=== PATIENT | female | born 1955 | race Two or more races ===

== ENCOUNTER 2017-06-25 20:37 | Inpatient (IN) | payer MEDICARE, MEDICAID ==
[~2017-06-25] VITALS: Ht 149.9 cm; Wt 59.9 kg
[~2017-06-25 20:37] MED LIST: AMLODIPINE BESYL5 MG PO; ANTARA130 MG PO; ASPIRIN EC81 MG PO; AZITHROMYCIN250 MG PO; COUMADIN2 MG PO; GLUCOPHAGE500 MG PO; HUMULIN N100 UNIT/2 SQ; HUMULIN R100 UNIT/1 SUBQ; LIPITOR10 MG PO; MYLANTA30 M1 PO; OMEPRAZOLE20 MG PO; PEPCID20 MG ORAL; PHENERGAN/CODE120 ML PO; PRAVASTATIN SOD80 MG PO
[2017-06-25] MEDS ORDERED: Nitroglycerin 2% oint pkt TOPIC ONE (20:45)
[2017-06-25] MEDS ORDERED: Morphine Sulfate 4mg/ml Inj IVP ONE (20:45)
[2017-06-25 21:16] LABS: HEMATOCRIT 30.7 % (37.0-47.0); HEMOGLOBIN 9.2 G/DL (12.0-16.0); LYMPHOCYTES % (AUTO) 13.4 % (20.0-45.0); MEAN CORPUSCULAR VOLUME 97 FL (80-99); MONOCYTES % (AUTO) 7.8 % (1.0-10.0); NEUTROPHILS % (AUTO) 76.8 % (45.0-75.0); PLATELET COUNT 417 K/UL (150-450); RED BLOOD COUNT 3.16 M/UL (4.20-5.40); RED CELL DISTRIBUTION WIDTH 18.5 % (11.6-14.8); WHITE BLOOD COUNT 10.9 K/UL (4.8-10.8)
[2017-06-25 21:30] VITALS: BP 137/56
[2017-06-25 21:37] LABS: ALANINE AMINOTRANSFERASE 13 U/L (12-78); ALBUMIN/GLOBULIN RATIO 0.6 (1.0-2.7); ALKALINE PHOSPHATASE 109 U/L (46-116); ANION GAP 6 mmol/L (5-15); ASPARTATE AMINO TRANSFERASE 35 U/L (15-37); BILIRUBIN,TOTAL 0.3 MG/DL (0.2-1.0); BLOOD UREA NITROGEN 18 mg/dL (7-18); CALCIUM 9.6 MG/DL (8.5-10.1); CARBON DIOXIDE 28 MMOL/L (21-32); CHLORIDE 96 MMOL/L (98-107); CREATININE 2.6 MG/DL (0.55-1.30); POTASSIUM 4.5 MMOL/L (3.5-5.1); SODIUM 130 MMOL/L (136-145)
[2017-06-25 21:43] LABS: CREATINE KINASE 141 U/L (26-308)
[2017-06-25 21:44] LABS: APPEARANCE,URINE CLEAR; BILIRUBIN, URINE NEGATIVE (NEGATIVE); GLUCOSE, URINE (UA) NEGATIVE (NEGATIVE); KETONES,URINE 1+ (NEGATIVE); LEUKOCYTE ESTERASE ,URINE 2+ (NEGATIVE); NITRITE,URINE NEGATIVE (NEGATIVE); PH,URINE 5 (4.5-8.0); PROTEIN,URINE 4+ (NEGATIVE); UROBILINOGEN,URINE NORMAL MG/DL (0.0-1.0)
[2017-06-25 21:48] LABS: COLOR,URINE YELLOW
--- NOTE | 2017-06-25 22:52 | Emergency Room Report ---
History of Present Illness General Chief Complaint: Chest Pain Source: Patient, Medical Record, EMS (Deangelo Wan M.D.) Present Illness HPI Patient is discharged after being evaluated for acute coronary syndrome at [facility]. Tonight for about an hour and half she's been complaining about left-sided chest pain. According to paramedics they stated it is pleuritic. They did an EKG in the field to did not reveal a STEMI. They gave aspirin but no nitrates in the field. The patient is a dialysis patient. According to her doctors her troponins were minimally elevated at [facility] and was 0.3 at discharge. The patient denies shortness of breath, nausea, vomiting, diarrhea. She underwent dialysis earlier today. She gets dialysis Tuesdays and Saturdays. According to the previous history she is on Coumadin. (This recording might be in error) She is being treated for MRSA and the urine. 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, CAD , PACEMAKER Hx Hypertension: Yes Hx Diabetes: Yes - dm2 Hx Cancer: No Hx Gastrointestinal Problems: Yes - Gatritis Hx Dialysis: Yes - -----tue Hx Neurological Problems: No (Deangelo Wan M.D.) Review of Systems All Other Systems: negative except mentioned in HPI (Deangelo Wan M.D.) Physical Exam Vital Signs Date Time Temp Pulse Resp B/P (MAP) Pulse Ox O2 Delivery O2 Flow Rate FiO2 06/25/17 20:29 98.4 72 18 127/59 95 Room Air Sp02 EP Interpretation: reviewed, normal General Appearance: well appearing, no apparent distress, other - GCS 14, keeps eyes closed Head: normocephalic Eyes: bilateral eye normal inspection, bilateral eye PERRL ENT: moist mucus membranes Neck: supple Respiratory: lungs clear, normal breath sounds Cardiovascular #1: regular rate, rhythm Cardiovascular #2: 2+ radial (R) Gastrointestinal: normal inspection, normal bowel sounds, non tender, no mass, non-distended Musculoskeletal: back normal, gait/station normal, normal range of motion Neurologic: alert, DTRs symmetric, sensory intact, motor weakness - generalized Psychiatric: depressed affect Skin: normal inspection, warm/dry (Deangelo Wan M.D.) Procedures Critical Care Time Critical Care Time Total Critical Care Time: 30 min bedside evaluation and treatment excludes procedures (EKG). Reason for critical care: NSTEMI Possible complications: hypotension, hypertension, TN, shock, arrhythmias, metabolic acidosis, end organ damage, respiratory failure. Interventions: aspirin, nitrates, heparin Course: Patient with chest pain and no STEMI on EKG. Treated with aspirin in field and nitrates and morphine here. Lab reported + troponin. Comparison of recent, elevated. Repeat EKG still no STEMI. Contact PMD and manager delivery with discussions with consideration transfer to higher level of care. [employer] Truck Driver recommends OK to stay. Patient hemodynamically stable. Refuses more pain medicine and states pain is 2/10. Though she was supposed to be on coumadin, INR was 1.0 and so heparin was begun. Consultations: nursing staff, EMS, manager delivery, PMD Performed by: Dr. Wan Tolerated well condition = serious (Deangelo Wan M.D.) Central Line Central Line : Consent: Written Central Line Lumen: triple Maximal Sterile Barrier Tech: yes cap, yes mask, yes sterile gown, yes sterile gloves, yes large sterile sheet, yes hand hygiene, yes chlorhexidine prep Central Line Postion: internal jugular (L) Anesthesia: Lidocaine cc's of anesthesia: 5 Complications: none Central Line Post Position: sutured, good blood return, position confirmed w / CXR Attempts: One Patient Tolerated: Well Complications: None (José Miguel Handy M.D.) Medical Decision Making Diagnostic Impression: Primary Impression: NSTEMI (non-ST elevated myocardial infarction) Additional Impressions: CHF (congestive heart failure) Qualified Codes: I50.43 - Acute on chronic combined systolic (congestive) and diastolic (congestive) heart failure ESRD (end stage renal disease) on dialysis Urinary tract infection Qualified Codes: N30.00 - Acute cystitis without hematuria ER Course Patient presents with chest pain. Chest risk factors of dialysis and date disease with hypertension. Differential includes acute myocardial infarction, acute coronary syndrome, none Steny, pneumonia, gram was (less likely as the patient is mostly on Coumadin), costochondritis amongst others. Evaluation will be with EKG, chest x-ray and laboratory. She was treated with nitroglycerin paste and morphine. She received aspirin in the field. EKG shows no acute injury. There is a left axis deviation with right bundle branch block. The laboratory called us with a positive troponin. The patient was given aspirin in the field. She he had nitroglycerin on her chest and also to treated with morphine. She was improved clinically. The chest x-ray showed asymmetric increased markings with this being greater on the right-hand side or white count was normal. She's not coughing. This was presumed to be related to congestive heart failure this was corroborated with an elevated BNP. Her private physician was contacted. She gave a history of the elevated troponin was minimally elevated prior to discharge. She requested I speak with Dr. Sweeney. Dr. Shaw requested a copy of EKG. Patient discussed in detail. She is comfortable admitting the patient to [facility]. She will discuss with Dr. Walls. The patient is supposed and Coumadin according to the old records however according to most recent documentation she's on antibiotics. Her INR is 1.0 and therefore a heparin bolus is given and heparin drip is begun. Patient states the pain is much improved at this time. I offered to give her more morphine this time and she refused. She has a known UTI and is on antibiotics. No antibiotics given in ED. Admit [facility] Dr. Schultz. Laboratory Tests Test 06/25/17 20:50 06/25/17 21:23 White Blood Count 10.9 K/UL (4.8-10.8) H Red Blood Count 3.16 M/UL (4.20-5.40) L Hemoglobin 9.2 G/DL (12.0-16.0) L Hematocrit 30.7 % (37.0-47.0) L Mean Corpuscular Volume 97 FL (80-99) Mean Corpuscular Hemoglobin 29.3 PG (27.0-31.0) Mean Corpuscular Hemoglobin Concent 30.1 G/DL (32.0-36.0) L Red Cell Distribution Width 18.5 % (11.6-14.8) H Platelet Count 417 K/UL (150-450) Mean Platelet Volume 5.4 FL (6.5-10.1) L Neutrophils (%) (Auto) 76.8 % (45.0-75.0) H Lymphocytes (%) (Auto) 13.4 % (20.0-45.0) L Monocytes (%) (Auto) 7.8 % (1.0-10.0) Eosinophils (%) (Auto) 1.0 % (0.0-3.0) Basophils (%) (Auto) 1.0 % (0.0-2.0) Prothrombin Time 10.0 SEC (9.30-11.50) Prothrombin Time INR 1.0 (0.9-1.1) PTT 23 SEC (23-33) Sodium Level 130 MMOL/L (136-145) L Potassium Level 4.5 MMOL/L (3.5-5.1) Chloride Level 96 MMOL/L (98-107) L Carbon Dioxide Level 28 MMOL/L (21-32) Anion Gap 6 mmol/L (5-15) Blood Urea Nitrogen 18 mg/dL (7-18) Creatinine 2.6 MG/DL (0.55-1.30) H Estimate Glomerular Filtration Rate 18.8 mL/min (>60) Glucose Level 162 MG/DL (74-106) H Calcium Level 9.6 MG/DL (8.5-10.1) Total Bilirubin 0.3 MG/DL (0.2-1.0) Aspartate Amino Transferase (AST) 35 U/L (15-37) Alanine Aminotransferase (ALT) 13 U/L (12-78) Alkaline Phosphatase 109 U/L (46-116) Total Creatine Kinase 141 U/L (26-308) Troponin I 3.652 ng/mL (0.000-0.056) Pro-B-Type Natriuretic Peptide > 13052 pg/mL (0-125) H Total Protein 8.1 G/DL (6.4-8.2) Albumin 3.0 G/DL (3.4-5.0) L Globulin 5.1 g/dL Albumin/Globulin Ratio 0.6 (1.0-2.7) L Urine Color Yellow Urine Appearance Clear Urine pH 5 (4.5-8.0) Urine Specific [place] 1.010 (1.005-1.035) Urine Protein 4+ (NEGATIVE) H Urine Glucose (UA) Negative (NEGATIVE) Urine Ketones 1+ (NEGATIVE) H Urine Occult Blood 1+ (NEGATIVE) H Urine Nitrite Negative (NEGATIVE) Urine Bilirubin Negative (NEGATIVE) Urine Urobilinogen Normal MG/DL (0.0-1.0) Urine Leukocyte Esterase 2+ (NEGATIVE) H Urine RBC 2-4 /HPF (0 - 2) H Urine WBC 5-10 /HPF (0 - 2) H Urine Squamous Epithelial Cells Few /LPF (NONE/OCC) Urine Bacteria Few /HPF (NONE) Urine Yeast Few /HPF (NONE) H (Deangelo Wan M.D.) EKG Diagnostic Results Rate: normal Rhythm: NSR ST Segments: no acute changes - LAD and RBBB (Deangelo Wan M.D.) Rhythm Strip Diag. Results EP Interpretation: yes Rhythm: NSR, no PVC's, no ectopy (Deangelo Wan M.D.) Chest X-Ray Diagnostic Results Chest X-Ray Diagnostic Results : Chest X-Ray Ordered: Yes # of Views/Limited/Complete: 1 View Indication: Chest Pain EP Interpretation: Yes Interpretation: no pneumothorax, other - inc cor and pacer R CHF vs pneumonia R Impression: Other - the R changes are new Electronically Signed by: Electronically signed by Deangelo Wan MD (Deangelo Wan M.D.) Last Vital Signs Date Time Temp Pulse Resp B/P (MAP) Pulse Ox O2 Delivery O2 Flow Rate FiO2 06/25/17 21:27 137/56 06/25/17 20:29 98.4 72 18 95 Room Air Status: improved (Deangelo Wan M.D.) Disposition: ADMITTED INPATIENT Condition: Serious Referrals: KHARI SCHULTZ (PCP) Deangelo Wan M.D. Jun 25, 2017 22:52 José Miguel Handy M.D. Jun 26, 2017 01:43
[2017-06-25 23:07] VITALS: BP 137/56
[2017-06-25 23:12] VITALS: BP 110/46
[2017-06-25] MEDS ORDERED: FAMOTIDINE10 MG ORAL (23:41)
[2017-06-25] MEDS ORDERED: MULTIVITAMINS1 EAC2 ORAL (23:41)
[2017-06-25] MEDS ORDERED: PLAVIX75 MG ORAL (23:41)
[2017-06-25] MEDS ORDERED: METOPROLOL SUCC50 MG ORAL (23:41)
[2017-06-25] MEDS ORDERED: ZOLPIDEM TARTRAT5 MG ORAL (23:41)
[2017-06-25] MEDS ORDERED: ISOSORBIDE MONO20 MG PO (23:41)
[2017-06-25] MEDS ORDERED: NOVOLOG100 UNIT/3 SUBQ (23:41)
[2017-06-25] MEDS ORDERED: DOCUSATE SODIU100 MG ORAL (23:41)
[2017-06-25] MEDS ORDERED: CIPRO500 MG/51 PO (23:41)
[2017-06-25] MEDS ORDERED: ASCORBIC ACID500 MG ORAL (23:41)
[2017-06-25] MEDS ORDERED: ZINC50 M2 ORAL (23:41)
[2017-06-25] MEDS ORDERED: TYLENOL650 MG/20. ORAL (23:41)
[2017-06-25] MEDS ORDERED: METRONIDAZOLE375 MG ORAL (23:41)
[2017-06-25] MEDS ORDERED: NYSTATIN100000 UN1 ORAL (23:41)
[2017-06-25] MEDS ORDERED: NITROGLYCERIN0.4 MG SL (23:41)
[2017-06-25] MEDS ORDERED: Heparin 5000 units/ml inj IV ONE (23:45)
[2017-06-25] MEDS ORDERED: Heparin 25,000u/D5W 500ml 500 ML IV SCH (23:45)
[2017-06-26] VITALS (7 sets, daily range): BP systolic 112–133; BP diastolic 46–62
[2017-06-26] MEDS ORDERED: Nitroglycerin Subl 0.4mg tab SL PRN (07:45)
[2017-06-26] MEDS: Aspirin EC 81mg tab ORAL SCH (09:51)
[2017-06-26 10:04] LABS: ANION GAP 9 mmol/L (5-15); BLOOD UREA NITROGEN 18 mg/dL (7-18); CALCIUM 9.2 MG/DL (8.5-10.1); CARBON DIOXIDE 23 MMOL/L (21-32); CHLORIDE 100 MMOL/L (98-107); CREATININE 2.6 MG/DL (0.55-1.30); POTASSIUM 4.6 MMOL/L (3.5-5.1); SODIUM 132 MMOL/L (136-145)
[2017-06-26] MEDS ORDERED: NORCO 5-325 TA1 EACH ORAL (10:12)
[2017-06-26] MEDS ORDERED: Heparin 5000 units/ml inj IV ONE ×2 (10:15→18:30)
[2017-06-26] MEDS ORDERED: traMADol 50mg tab ORAL PRN ×2 (10:15→10:30)
[2017-06-26] MEDS ORDERED: METOPROLOL TART50 M1 ORAL (10:30)
[2017-06-26] MEDS: Heparin 25,000u/D5W 500ml 500 ML IV SCH ×2 (10:37→18:23)
--- NOTE | 2017-06-26 11:09 | Diagnostic Imaging Report ---
Indication: Chest pain Technique: CHEST 1 VIEW Comparison:08/03/2013 Findings: The heart is enlarged. There is calcification of the aorta. A pacemaker is now present on the right with leads in the region of the right atrium and right ventricle. Increased pulmonary vascularity is noted diffusely. There is interstitial disease. Blunting of the costophrenic angles is noted. Impression: Cardiomegaly with congestive heart failure, interstitial edema, and bilateral pleural effusions. Atherosclerotic change. Pacemaker.
--- NOTE | 2017-06-26 11:10 | Diagnostic Imaging Report ---
Indication: Line placement, shortness of breath Technique: CHEST 1 VIEW Comparison:06/25/2017 Findings: A left subclavian line has been placed with the tip in the superior vena cava. The heart remains enlarged. There is now bilateral airspace disease and pulmonary vascular redistribution. Blunting of both costophrenic angles is noted. Pacemaker remains. No pneumothorax post line placement. Impression: Cardiomegaly with congestive heart failure, bilateral pleural effusions, and pulmonary edema. Left jugular catheter in adequate position with tip in superior vena cava.
[2017-06-26] MEDS: Norco 5mg/325mg tab ORAL PRN ×2 (11:43→23:11)
[2017-06-26] MEDS: NovoLOG Insulin Flexpen SUBQ SCH ×5 (11:44→22:17)
[2017-06-26] MEDS: Nystatin Susp 500,000 units/5ml ORAL SCH ×2 (13:00→17:16)
--- NOTE | 2017-06-26 15:53 | Cardiology Progress Note ---
Subjective Subjective [id number] Objective Last 24 Hour Vital Signs Date Time Temp Pulse Resp B/P (MAP) Pulse Ox O2 Delivery O2 Flow Rate FiO2 06/26/17 12:00 97.1 81 18 118/46 98 Nasal Cannula 3.0 06/26/17 11:50 83 06/26/17 08:20 82 06/26/17 08:00 97.8 83 20 133/62 100 Nasal Cannula 3.0 06/26/17 07:31 98.4 77 14 112/52 97 Nasal Cannula 3.0 06/26/17 06:27 98.4 77 14 112/52 97 Nasal Cannula 3.0 06/26/17 03:48 98.4 73 12 127/51 100 Nasal Cannula 3.0 06/26/17 01:36 98.4 72 15 126/47 100 Nasal Cannula 3.0 06/25/17 23:12 98.4 74 20 110/46 100 Nasal Cannula 3.0 06/25/17 23:07 77 18 Nasal Cannula 3.0 06/25/17 21:57 98.4 06/25/17 21:30 98.4 77 18 137/56 100 Nasal Cannula 3.0 06/25/17 21:27 137/56 06/25/17 20:29 98.4 72 18 127/59 95 Room Air Intake and Output 06/26/17 06/27/17 19:00 07:00 Intake Total 81.49263 ml Balance 81.75138 ml Intake IV Total 81.06035 ml Laboratory Tests Test 06/25/17 20:50 06/25/17 21:23 06/26/17 09:15 White Blood Count 10.9 K/UL (4.8-10.8) H Red Blood Count 3.16 M/UL (4.20-5.40) L Hemoglobin 9.2 G/DL (12.0-16.0) L Hematocrit 30.7 % (37.0-47.0) L Mean Corpuscular Volume 97 FL (80-99) Mean Corpuscular Hemoglobin 29.3 PG (27.0-31.0) Mean Corpuscular Hemoglobin Concent 30.1 G/DL (32.0-36.0) L Red Cell Distribution Width 18.5 % (11.6-14.8) H Platelet Count 417 K/UL (150-450) Mean Platelet Volume 5.4 FL (6.5-10.1) L Neutrophils (%) (Auto) 76.8 % (45.0-75.0) H Lymphocytes (%) (Auto) 13.4 % (20.0-45.0) L Monocytes (%) (Auto) 7.8 % (1.0-10.0) Eosinophils (%) (Auto) 1.0 % (0.0-3.0) Basophils (%) (Auto) 1.0 % (0.0-2.0) Prothrombin Time 10.0 SEC (9.30-11.50) Prothromb Time International Ratio 1.0 (0.9-1.1) Activated Partial Thromboplast Time 23 SEC (23-33) 29 SEC (23-33) Sodium Level 130 MMOL/L (136-145) L 132 MMOL/L (136-145) L Potassium Level 4.5 MMOL/L (3.5-5.1) 4.6 MMOL/L (3.5-5.1) Chloride Level 96 MMOL/L (98-107) L 100 MMOL/L (98-107) Carbon Dioxide Level 28 MMOL/L (21-32) 23 MMOL/L (21-32) Anion Gap 6 mmol/L (5-15) 9 mmol/L (5-15) Blood Urea Nitrogen 18 mg/dL (7-18) 18 mg/dL (7-18) Creatinine 2.6 MG/DL (0.55-1.30) H 2.6 MG/DL (0.55-1.30) H Estimat Glomerular Filtration Rate 18.8 mL/min (>60) 18.8 mL/min (>60) Glucose Level 162 MG/DL (74-106) H 138 MG/DL (74-106) H Calcium Level 9.6 MG/DL (8.5-10.1) 9.2 MG/DL (8.5-10.1) Total Bilirubin 0.3 MG/DL (0.2-1.0) Aspartate Amino Transf (AST/SGOT) 35 U/L (15-37) Alanine Aminotransferase (ALT/SGPT) 13 U/L (12-78) Alkaline Phosphatase 109 U/L (46-116) Total Creatine Kinase 141 U/L (26-308) Troponin I 3.652 ng/mL (0.000-0.056) 2.952 ng/mL (0.000-0.056) Pro-B-Type Natriuretic Peptide > 69174 pg/mL (0-125) H Total Protein 8.1 G/DL (6.4-8.2) Albumin 3.0 G/DL (3.4-5.0) L Globulin 5.1 g/dL Albumin/Globulin Ratio 0.6 (1.0-2.7) L Urine Color Yellow Urine Appearance Clear Urine pH 5 (4.5-8.0) Urine Specific [place] 1.010 (1.005-1.035) Urine Protein 4+ (NEGATIVE) H Urine Glucose (UA) Negative (NEGATIVE) Urine Ketones 1+ (NEGATIVE) H Urine Occult Blood 1+ (NEGATIVE) H Urine Nitrite Negative (NEGATIVE) Urine Bilirubin Negative (NEGATIVE) Urine Urobilinogen Normal MG/DL (0.0-1.0) Urine Leukocyte Esterase 2+ (NEGATIVE) H Urine RBC 2-4 /HPF (0 - 2) H Urine WBC 5-10 /HPF (0 - 2) H Urine Squamous Epithelial Cells Few /LPF (NONE/OCC) Urine Bacteria Few /HPF (NONE) Urine Yeast Few /HPF (NONE) H LOC TOLBERT Jun 26, 2017 15:53
--- NOTE | 2017-06-26 15:53 | Cardiology Progress Note ---
Subjective Subjective [id number] Objective Last 24 Hour Vital Signs Date Time Temp Pulse Resp B/P (MAP) Pulse Ox O2 Delivery O2 Flow Rate FiO2 06/26/17 12:00 97.1 81 18 118/46 98 Nasal Cannula 3.0 06/26/17 11:50 83 06/26/17 08:20 82 06/26/17 08:00 97.8 83 20 133/62 100 Nasal Cannula 3.0 06/26/17 07:31 98.4 77 14 112/52 97 Nasal Cannula 3.0 06/26/17 06:27 98.4 77 14 112/52 97 Nasal Cannula 3.0 06/26/17 03:48 98.4 73 12 127/51 100 Nasal Cannula 3.0 06/26/17 01:36 98.4 72 15 126/47 100 Nasal Cannula 3.0 06/25/17 23:12 98.4 74 20 110/46 100 Nasal Cannula 3.0 06/25/17 23:07 77 18 Nasal Cannula 3.0 06/25/17 21:57 98.4 06/25/17 21:30 98.4 77 18 137/56 100 Nasal Cannula 3.0 06/25/17 21:27 137/56 06/25/17 20:29 98.4 72 18 127/59 95 Room Air Intake and Output 06/26/17 06/27/17 19:00 07:00 Intake Total 81.55817 ml Balance 81.40139 ml Intake IV Total 81.31147 ml Laboratory Tests Test 06/25/17 20:50 06/25/17 21:23 06/26/17 09:15 White Blood Count 10.9 K/UL (4.8-10.8) H Red Blood Count 3.16 M/UL (4.20-5.40) L Hemoglobin 9.2 G/DL (12.0-16.0) L Hematocrit 30.7 % (37.0-47.0) L Mean Corpuscular Volume 97 FL (80-99) Mean Corpuscular Hemoglobin 29.3 PG (27.0-31.0) Mean Corpuscular Hemoglobin Concent 30.1 G/DL (32.0-36.0) L Red Cell Distribution Width 18.5 % (11.6-14.8) H Platelet Count 417 K/UL (150-450) Mean Platelet Volume 5.4 FL (6.5-10.1) L Neutrophils (%) (Auto) 76.8 % (45.0-75.0) H Lymphocytes (%) (Auto) 13.4 % (20.0-45.0) L Monocytes (%) (Auto) 7.8 % (1.0-10.0) Eosinophils (%) (Auto) 1.0 % (0.0-3.0) Basophils (%) (Auto) 1.0 % (0.0-2.0) Prothrombin Time 10.0 SEC (9.30-11.50) Prothromb Time International Ratio 1.0 (0.9-1.1) Activated Partial Thromboplast Time 23 SEC (23-33) 29 SEC (23-33) Sodium Level 130 MMOL/L (136-145) L 132 MMOL/L (136-145) L Potassium Level 4.5 MMOL/L (3.5-5.1) 4.6 MMOL/L (3.5-5.1) Chloride Level 96 MMOL/L (98-107) L 100 MMOL/L (98-107) Carbon Dioxide Level 28 MMOL/L (21-32) 23 MMOL/L (21-32) Anion Gap 6 mmol/L (5-15) 9 mmol/L (5-15) Blood Urea Nitrogen 18 mg/dL (7-18) 18 mg/dL (7-18) Creatinine 2.6 MG/DL (0.55-1.30) H 2.6 MG/DL (0.55-1.30) H Estimat Glomerular Filtration Rate 18.8 mL/min (>60) 18.8 mL/min (>60) Glucose Level 162 MG/DL (74-106) H 138 MG/DL (74-106) H Calcium Level 9.6 MG/DL (8.5-10.1) 9.2 MG/DL (8.5-10.1) Total Bilirubin 0.3 MG/DL (0.2-1.0) Aspartate Amino Transf (AST/SGOT) 35 U/L (15-37) Alanine Aminotransferase (ALT/SGPT) 13 U/L (12-78) Alkaline Phosphatase 109 U/L (46-116) Total Creatine Kinase 141 U/L (26-308) Troponin I 3.652 ng/mL (0.000-0.056) 2.952 ng/mL (0.000-0.056) Pro-B-Type Natriuretic Peptide > 84881 pg/mL (0-125) H Total Protein 8.1 G/DL (6.4-8.2) Albumin 3.0 G/DL (3.4-5.0) L Globulin 5.1 g/dL Albumin/Globulin Ratio 0.6 (1.0-2.7) L Urine Color Yellow Urine Appearance Clear Urine pH 5 (4.5-8.0) Urine Specific [place] 1.010 (1.005-1.035) Urine Protein 4+ (NEGATIVE) H Urine Glucose (UA) Negative (NEGATIVE) Urine Ketones 1+ (NEGATIVE) H Urine Occult Blood 1+ (NEGATIVE) H Urine Nitrite Negative (NEGATIVE) Urine Bilirubin Negative (NEGATIVE) Urine Urobilinogen Normal MG/DL (0.0-1.0) Urine Leukocyte Esterase 2+ (NEGATIVE) H Urine RBC 2-4 /HPF (0 - 2) H Urine WBC 5-10 /HPF (0 - 2) H Urine Squamous Epithelial Cells Few /LPF (NONE/OCC) Urine Bacteria Few /HPF (NONE) Urine Yeast Few /HPF (NONE) H LOC TOLBERT Jun 26, 2017 15:53
--- NOTE | 2017-06-26 15:53 | Cardiology Progress Note ---
Subjective Subjective [id number] Objective Last 24 Hour Vital Signs Date Time Temp Pulse Resp B/P (MAP) Pulse Ox O2 Delivery O2 Flow Rate FiO2 06/26/17 12:00 97.1 81 18 118/46 98 Nasal Cannula 3.0 06/26/17 11:50 83 06/26/17 08:20 82 06/26/17 08:00 97.8 83 20 133/62 100 Nasal Cannula 3.0 06/26/17 07:31 98.4 77 14 112/52 97 Nasal Cannula 3.0 06/26/17 06:27 98.4 77 14 112/52 97 Nasal Cannula 3.0 06/26/17 03:48 98.4 73 12 127/51 100 Nasal Cannula 3.0 06/26/17 01:36 98.4 72 15 126/47 100 Nasal Cannula 3.0 06/25/17 23:12 98.4 74 20 110/46 100 Nasal Cannula 3.0 06/25/17 23:07 77 18 Nasal Cannula 3.0 06/25/17 21:57 98.4 06/25/17 21:30 98.4 77 18 137/56 100 Nasal Cannula 3.0 06/25/17 21:27 137/56 06/25/17 20:29 98.4 72 18 127/59 95 Room Air Intake and Output 06/26/17 06/27/17 19:00 07:00 Intake Total 81.82698 ml Balance 81.40959 ml Intake IV Total 81.68181 ml Laboratory Tests Test 06/25/17 20:50 06/25/17 21:23 06/26/17 09:15 White Blood Count 10.9 K/UL (4.8-10.8) H Red Blood Count 3.16 M/UL (4.20-5.40) L Hemoglobin 9.2 G/DL (12.0-16.0) L Hematocrit 30.7 % (37.0-47.0) L Mean Corpuscular Volume 97 FL (80-99) Mean Corpuscular Hemoglobin 29.3 PG (27.0-31.0) Mean Corpuscular Hemoglobin Concent 30.1 G/DL (32.0-36.0) L Red Cell Distribution Width 18.5 % (11.6-14.8) H Platelet Count 417 K/UL (150-450) Mean Platelet Volume 5.4 FL (6.5-10.1) L Neutrophils (%) (Auto) 76.8 % (45.0-75.0) H Lymphocytes (%) (Auto) 13.4 % (20.0-45.0) L Monocytes (%) (Auto) 7.8 % (1.0-10.0) Eosinophils (%) (Auto) 1.0 % (0.0-3.0) Basophils (%) (Auto) 1.0 % (0.0-2.0) Prothrombin Time 10.0 SEC (9.30-11.50) Prothromb Time International Ratio 1.0 (0.9-1.1) Activated Partial Thromboplast Time 23 SEC (23-33) 29 SEC (23-33) Sodium Level 130 MMOL/L (136-145) L 132 MMOL/L (136-145) L Potassium Level 4.5 MMOL/L (3.5-5.1) 4.6 MMOL/L (3.5-5.1) Chloride Level 96 MMOL/L (98-107) L 100 MMOL/L (98-107) Carbon Dioxide Level 28 MMOL/L (21-32) 23 MMOL/L (21-32) Anion Gap 6 mmol/L (5-15) 9 mmol/L (5-15) Blood Urea Nitrogen 18 mg/dL (7-18) 18 mg/dL (7-18) Creatinine 2.6 MG/DL (0.55-1.30) H 2.6 MG/DL (0.55-1.30) H Estimat Glomerular Filtration Rate 18.8 mL/min (>60) 18.8 mL/min (>60) Glucose Level 162 MG/DL (74-106) H 138 MG/DL (74-106) H Calcium Level 9.6 MG/DL (8.5-10.1) 9.2 MG/DL (8.5-10.1) Total Bilirubin 0.3 MG/DL (0.2-1.0) Aspartate Amino Transf (AST/SGOT) 35 U/L (15-37) Alanine Aminotransferase (ALT/SGPT) 13 U/L (12-78) Alkaline Phosphatase 109 U/L (46-116) Total Creatine Kinase 141 U/L (26-308) Troponin I 3.652 ng/mL (0.000-0.056) 2.952 ng/mL (0.000-0.056) Pro-B-Type Natriuretic Peptide > 51759 pg/mL (0-125) H Total Protein 8.1 G/DL (6.4-8.2) Albumin 3.0 G/DL (3.4-5.0) L Globulin 5.1 g/dL Albumin/Globulin Ratio 0.6 (1.0-2.7) L Urine Color Yellow Urine Appearance Clear Urine pH 5 (4.5-8.0) Urine Specific [place] 1.010 (1.005-1.035) Urine Protein 4+ (NEGATIVE) H Urine Glucose (UA) Negative (NEGATIVE) Urine Ketones 1+ (NEGATIVE) H Urine Occult Blood 1+ (NEGATIVE) H Urine Nitrite Negative (NEGATIVE) Urine Bilirubin Negative (NEGATIVE) Urine Urobilinogen Normal MG/DL (0.0-1.0) Urine Leukocyte Esterase 2+ (NEGATIVE) H Urine RBC 2-4 /HPF (0 - 2) H Urine WBC 5-10 /HPF (0 - 2) H Urine Squamous Epithelial Cells Few /LPF (NONE/OCC) Urine Bacteria Few /HPF (NONE) Urine Yeast Few /HPF (NONE) H LOC TOLBERT Jun 26, 2017 15:53
[2017-06-26] MEDS: Imdur 30mg tab ORAL SCH (17:16)
[2017-06-26] MEDS: Metoprolol Tartrate 50mg tab ORAL SCH (21:48)
[2017-06-26] MEDS: Atorvastatin 20mg tab ORAL SCH (21:48)
--- NOTE | 2017-06-26 22:00 | History and Physical Report ---
DATE OF ADMISSION: 06/25/2017 CHIEF COMPLAINT: Chest pain. HISTORY OF PRESENT ILLNESS: This is a 61-year-old jail lady with a history of ESRD, on hemodialysis, hypertension, diabetes, osteomyelitis, and stage IV sacrum wound. The patient was sent in from the jail because of chest pain and the patient was recently discharged from [facility] with sepsis and stage IV decubitus ulcer, status post debridement. The patient's last dialysis was on Tuesday and the patient was complaining of substernal chest pain last night, which was constant and not relieved with nitroglycerin and sent the patient to the ER. The patient is a poor historian and I could not get any detailed history. In the ER, the patient was found to have elevated troponin of 3.6 and EKG, no ST-T elevations and then the ER called the experimental plastics fabricator and the experimental plastics fabricator stated no need to transfer the patient to [facility]. No reported fever, nausea, vomiting, or abdominal pain during the night. PAST MEDICAL HISTORY: 1. ESRD, on hemodialysis. 2. Anemia of CKD. 3. Hypertension. 4. Diabetes. 5. Rheumatic disorder. 6. Cardiac pacemaker. 7. Status post cardiac arrest. 8. Right above-knee amputation. 9. Osteomyelitis with MRSA wound. 10. Stage IV decubitus ulcer, status post debridement. ALLERGIES: No known drug allergies. MEDICATIONS: The jail medications, 1. Ciprofloxacin 500 mg daily. 2. Flagyl 500 mg q.12 h. 3. Isosorbide mononitrate. 4. Metoprolol. 5. Aspirin. 6. Nystatin. 7. Insulin sliding scale. SOCIAL HISTORY: Resides in a jail. No current smoking, alcohol, or drug use. FAMILY HISTORY: Noncontributory. REVIEW OF SYSTEMS: The patient is a poor historian, and I could not get any detailed history. PHYSICAL EXAMINATION: VITAL SIGNS: Blood pressure of 133/62, heart rate of 82, respiratory rate 20, temperature is 97.8, and oxygen saturation is 97% on nasal cannula 2 liters/minute. GENERAL: The patient is not in acute distress, alert, awake, and oriented x1. HEENT: Atraumatic and normocephalic. NECK: Supple. Trachea is in the midline. LUNGS: Clear to auscultate bilaterally. No rales. No rhonchi. HEART: S1, S2. Regular rate and rhythm. No murmur, rub, or gallop. ABDOMEN: Soft and nontender. Bowel sounds present. EXTREMITIES: No edema. Left AV fistula present with right AKA. LABORATORY DATA: White count 10.92, hemoglobin 9.2, hematocrit 32.7, and platelet count is 217. Sodium 132, potassium 4.6, chloride 100, bicarbonate 23, BUN 18, creatinine is 2.6, and glucose is 138. Troponin is 3.652 thus far and BNP is 35,000. Total protein is 8.1, albumin is 3.0. PTT is 29. UA showed negative nitrite, 2+ leukocyte esterase, 3 to 4 RBC, 5 to 10 WBC, and few yeast. ASSESSMENT AND PLAN: 1. Chest pain with elevated troponin, most likely is a [id number] myocardial infarction. 2. End-stage renal disease, on hemodialysis. 3. Anemia of chronic kidney disease. 4. Hypertension. 5. Diabetes. 6. Status post right above knee amputation. PLAN: 1. We are going to dialyze the patient tomorrow and Lasix 60 mg IV push once and send for the urine culture, blood culture, and also wound culture, and we will continue ciprofloxacin and Flagyl. 2. Cardiology consult. 3. Serial troponin and discussed with RN. Cary Lawrence Walls M.D. DR: JOHN JOB#: [id number] CC:
--- NOTE | 2017-06-26 22:00 | History and Physical Report ---
DATE OF ADMISSION: 06/25/2017 CHIEF COMPLAINT: Chest pain. HISTORY OF PRESENT ILLNESS: This is a 61-year-old custodial lady with a history of ESRD, on hemodialysis, hypertension, diabetes, osteomyelitis, and stage IV sacrum wound. The patient was sent in from the custodial because of chest pain and the patient was recently discharged from [facility] with sepsis and stage IV decubitus ulcer, status post debridement. The patient's last dialysis was on Tuesday and the patient was complaining of substernal chest pain last night, which was constant and not relieved with nitroglycerin and sent the patient to the ER. The patient is a poor historian and I could not get any detailed history. In the ER, the patient was found to have elevated troponin of 3.6 and EKG, no ST-T elevations and then the ER called the assistant to the vice president and the assistant to the vice president stated no need to transfer the patient to [facility]. No reported fever, nausea, vomiting, or abdominal pain during the night. PAST MEDICAL HISTORY: 1. ESRD, on hemodialysis. 2. Anemia of CKD. 3. Hypertension. 4. Diabetes. 5. Rheumatic disorder. 6. Cardiac pacemaker. 7. Status post cardiac arrest. 8. Right above-knee amputation. 9. Osteomyelitis with MRSA wound. 10. Stage IV decubitus ulcer, status post debridement. ALLERGIES: No known drug allergies. MEDICATIONS: The custodial medications, 1. Ciprofloxacin 500 mg daily. 2. Flagyl 500 mg q.12 h. 3. Isosorbide mononitrate. 4. Metoprolol. 5. Aspirin. 6. Nystatin. 7. Insulin sliding scale. SOCIAL HISTORY: Resides in a custodial. No current smoking, alcohol, or drug use. FAMILY HISTORY: Noncontributory. REVIEW OF SYSTEMS: The patient is a poor historian, and I could not get any detailed history. PHYSICAL EXAMINATION: VITAL SIGNS: Blood pressure of 133/62, heart rate of 82, respiratory rate 20, temperature is 97.8, and oxygen saturation is 97% on nasal cannula 2 liters/minute. GENERAL: The patient is not in acute distress, alert, awake, and oriented x1. HEENT: Atraumatic and normocephalic. NECK: Supple. Trachea is in the midline. LUNGS: Clear to auscultate bilaterally. No rales. No rhonchi. HEART: S1, S2. Regular rate and rhythm. No murmur, rub, or gallop. ABDOMEN: Soft and nontender. Bowel sounds present. EXTREMITIES: No edema. Left AV fistula present with right AKA. LABORATORY DATA: White count 10.92, hemoglobin 9.2, hematocrit 32.7, and platelet count is 217. Sodium 132, potassium 4.6, chloride 100, bicarbonate 23, BUN 18, creatinine is 2.6, and glucose is 138. Troponin is 3.652 thus far and BNP is 35,000. Total protein is 8.1, albumin is 3.0. PTT is 29. UA showed negative nitrite, 2+ leukocyte esterase, 3 to 4 RBC, 5 to 10 WBC, and few yeast. ASSESSMENT AND PLAN: 1. Chest pain with elevated troponin, most likely is a [id number]-[id number] myocardial infarction. 2. End-stage renal disease, on hemodialysis. 3. Anemia of chronic kidney disease. 4. Hypertension. 5. Diabetes. 6. Status post right above knee amputation. PLAN: 1. We are going to dialyze the patient tomorrow and Lasix 60 mg IV push once and send for the urine culture, blood culture, and also wound culture, and we will continue ciprofloxacin and Flagyl. 2. Cardiology consult. 3. Serial troponin and discussed with RN. Cary Lawrence Walls M.D. DR: JOHN JOB#: [id number] CC:
--- NOTE | 2017-06-26 22:00 | History and Physical Report ---
DATE OF ADMISSION: 06/25/2017 CHIEF COMPLAINT: Chest pain. HISTORY OF PRESENT ILLNESS: This is a 61-year-old shelter lady with a history of ESRD, on hemodialysis, hypertension, diabetes, osteomyelitis, and stage IV sacrum wound. The patient was sent in from the shelter because of chest pain and the patient was recently discharged from [facility] with sepsis and stage IV decubitus ulcer, status post debridement. The patient's last dialysis was on Tuesday and the patient was complaining of substernal chest pain last night, which was constant and not relieved with nitroglycerin and sent the patient to the ER. The patient is a poor historian and I could not get any detailed history. In the ER, the patient was found to have elevated troponin of 3.6 and EKG, no ST-T elevations and then the ER called the health education coordinator and the health education coordinator stated no need to transfer the patient to [facility]. No reported fever, nausea, vomiting, or abdominal pain during the night. PAST MEDICAL HISTORY: 1. ESRD, on hemodialysis. 2. Anemia of CKD. 3. Hypertension. 4. Diabetes. 5. Rheumatic disorder. 6. Cardiac pacemaker. 7. Status post cardiac arrest. 8. Right above-knee amputation. 9. Osteomyelitis with MRSA wound. 10. Stage IV decubitus ulcer, status post debridement. ALLERGIES: No known drug allergies. MEDICATIONS: The shelter medications, 1. Ciprofloxacin 500 mg daily. 2. Flagyl 500 mg q.12 h. 3. Isosorbide mononitrate. 4. Metoprolol. 5. Aspirin. 6. Nystatin. 7. Insulin sliding scale. SOCIAL HISTORY: Resides in a shelter. No current smoking, alcohol, or drug use. FAMILY HISTORY: Noncontributory. REVIEW OF SYSTEMS: The patient is a poor historian, and I could not get any detailed history. PHYSICAL EXAMINATION: VITAL SIGNS: Blood pressure of 133/62, heart rate of 82, respiratory rate 20, temperature is 97.8, and oxygen saturation is 97% on nasal cannula 2 liters/minute. GENERAL: The patient is not in acute distress, alert, awake, and oriented x1. HEENT: Atraumatic and normocephalic. NECK: Supple. Trachea is in the midline. LUNGS: Clear to auscultate bilaterally. No rales. No rhonchi. HEART: S1, S2. Regular rate and rhythm. No murmur, rub, or gallop. ABDOMEN: Soft and nontender. Bowel sounds present. EXTREMITIES: No edema. Left AV fistula present with right AKA. LABORATORY DATA: White count 10.92, hemoglobin 9.2, hematocrit 32.7, and platelet count is 217. Sodium 132, potassium 4.6, chloride 100, bicarbonate 23, BUN 18, creatinine is 2.6, and glucose is 138. Troponin is 3.652 thus far and BNP is 35,000. Total protein is 8.1, albumin is 3.0. PTT is 29. UA showed negative nitrite, 2+ leukocyte esterase, 3 to 4 RBC, 5 to 10 WBC, and few yeast. ASSESSMENT AND PLAN: 1. Chest pain with elevated troponin, most likely is a [id number] myocardial infarction. 2. End-stage renal disease, on hemodialysis. 3. Anemia of chronic kidney disease. 4. Hypertension. 5. Diabetes. 6. Status post right above knee amputation. PLAN: 1. We are going to dialyze the patient tomorrow and Lasix 60 mg IV push once and send for the urine culture, blood culture, and also wound culture, and we will continue ciprofloxacin and Flagyl. 2. Cardiology consult. 3. Serial troponin and discussed with RN. Cary Lawrence Walls M.D. DR: JOHN JOB#: [id number] CC:
[2017-06-27] VITALS (7 sets, daily range): BP systolic 111–144; BP diastolic 51–67
[2017-06-27] MEDS ORDERED: Heparin 5000 units/ml inj IV ONE (01:30)
[2017-06-27] MEDS: Heparin 25,000u/D5W 500ml 500 ML IV SCH ×2 (01:52→05:21)
[2017-06-27] MEDS: NovoLOG Insulin Flexpen SUBQ SCH ×4 (06:30→21:32)
[2017-06-27] MEDS: Aspirin EC 81mg tab ORAL SCH (08:49)
[2017-06-27] MEDS: Metoprolol Tartrate 50mg tab ORAL SCH ×2 (08:49→21:29)
[2017-06-27] MEDS: Nystatin Susp 500,000 units/5ml ORAL SCH ×3 (08:49→18:04)
[2017-06-27] MEDS ORDERED: Zinc Sulfate 220mg cap ORAL SCH (09:00)
[2017-06-27] MEDS ORDERED: Imdur 30mg tab ORAL SCH (09:00)
[2017-06-27] MEDS ORDERED: Tubing IV Secondary IV ONE (10:29)
[2017-06-27] MEDS ORDERED: NS 275ml ONE (10:29)
--- NOTE | 2017-06-27 11:26 | Wound Care Consultation ---
Wound Assessment Wound Assessment #1: Wound Number: 1 Wound Present on Admission: Yes New Wound: No Status Change of Wound: No Wound Location Body Site Modif: right Wound Location Body Site: arm Wound Type: traumatic injury Emily Test: Does not Emily Wound Thickness: Full Thickness Wound Length: 2.0 Wound Width: 2.5 Wound Depth: utd Percent of Wound [place]/Red: 50 Percent of Wound Bed Yellow/Wh: 50 Wound Drainage Description: Serosanguineous Wound Drainage Amount: Moderate Wound Drainage Odor: None/Absent Tissue Surrounding Wound: Erythemic Wound General Appearance: Reddened, Draining Wound Assessment #2: Wound Number: 2 Wound Present on Admission: Yes New Wound: No Status Change of Wound: No Wound Location Body Site Modif: mid Wound Location Body Site: sacral Wound Type: pressure ulcer Emily Test: Does not Emily Pressure Ulcer Stage: Unstageable Wound Thickness: Full Thickness Wound Length: 5.0 Wound Width: 4.5 Wound Depth: utd Percent of Wound [place]/Red: 70 Percent of Wound Bed Yellow/Wh: 30 Wound Drainage Description: Serosanguineous Wound Drainage Amount: Moderate Wound Drainage Odor: None/Absent Tissue Surrounding Wound: Macerated Wound General Appearance: Reddened - yellow, Draining Wound Comment #1 Right arm traumatic injury open wound #2 Sacral unstageable pressure ulcer Recommendation -Local wound care per protocol -Keep clean and dry -Turn and reposition -Optimize nutrition -Low air loss mattress -Offload load left heel -Heel protector on left heel -Assess and f/u accordingly for any changes DEE DEE VELEZ RN Jun 27, 2017 11:26
--- NOTE | 2017-06-27 11:26 | Wound Care Consultation ---
Wound Assessment Wound Assessment #1: Wound Number: 1 Wound Present on Admission: Yes New Wound: No Status Change of Wound: No Wound Location Body Site Modif: right Wound Location Body Site: arm Wound Type: traumatic injury Emily Test: Does not Emily Wound Thickness: Full Thickness Wound Length: 2.0 Wound Width: 2.5 Wound Depth: utd Percent of Wound [place]/Red: 50 Percent of Wound Bed Yellow/Wh: 50 Wound Drainage Description: Serosanguineous Wound Drainage Amount: Moderate Wound Drainage Odor: None/Absent Tissue Surrounding Wound: Erythemic Wound General Appearance: Reddened, Draining Wound Assessment #2: Wound Number: 2 Wound Present on Admission: Yes New Wound: No Status Change of Wound: No Wound Location Body Site Modif: mid Wound Location Body Site: sacral Wound Type: pressure ulcer Emily Test: Does not Emily Pressure Ulcer Stage: Unstageable Wound Thickness: Full Thickness Wound Length: 5.0 Wound Width: 4.5 Wound Depth: utd Percent of Wound [place]/Red: 70 Percent of Wound Bed Yellow/Wh: 30 Wound Drainage Description: Serosanguineous Wound Drainage Amount: Moderate Wound Drainage Odor: None/Absent Tissue Surrounding Wound: Macerated Wound General Appearance: Reddened - yellow, Draining Wound Comment #1 Right arm traumatic injury open wound #2 Sacral unstageable pressure ulcer Recommendation -Local wound care per protocol -Keep clean and dry -Turn and reposition -Optimize nutrition -Low air loss mattress -Offload load left heel -Heel protector on left heel -Assess and f/u accordingly for any changes DEE DEE VELEZ RN Jun 27, 2017 11:26
--- NOTE | 2017-06-27 11:26 | Wound Care Consultation ---
Wound Assessment Wound Assessment #1: Wound Number: 1 Wound Present on Admission: Yes New Wound: No Status Change of Wound: No Wound Location Body Site Modif: right Wound Location Body Site: arm Wound Type: traumatic injury Emily Test: Does not Emily Wound Thickness: Full Thickness Wound Length: 2.0 Wound Width: 2.5 Wound Depth: utd Percent of Wound [place]/Red: 50 Percent of Wound Bed Yellow/Wh: 50 Wound Drainage Description: Serosanguineous Wound Drainage Amount: Moderate Wound Drainage Odor: None/Absent Tissue Surrounding Wound: Erythemic Wound General Appearance: Reddened, Draining Wound Assessment #2: Wound Number: 2 Wound Present on Admission: Yes New Wound: No Status Change of Wound: No Wound Location Body Site Modif: mid Wound Location Body Site: sacral Wound Type: pressure ulcer Emily Test: Does not Emily Pressure Ulcer Stage: Unstageable Wound Thickness: Full Thickness Wound Length: 5.0 Wound Width: 4.5 Wound Depth: utd Percent of Wound [place]/Red: 70 Percent of Wound Bed Yellow/Wh: 30 Wound Drainage Description: Serosanguineous Wound Drainage Amount: Moderate Wound Drainage Odor: None/Absent Tissue Surrounding Wound: Macerated Wound General Appearance: Reddened - yellow, Draining Wound Comment #1 Right arm traumatic injury open wound #2 Sacral unstageable pressure ulcer Recommendation -Local wound care per protocol -Keep clean and dry -Turn and reposition -Optimize nutrition -Low air loss mattress -Offload load left heel -Heel protector on left heel -Assess and f/u accordingly for any changes DEE DEE VELEZ RN Jun 27, 2017 11:26
[2017-06-27] MEDS: Imdur 30mg tab ORAL SCH (16:27)
--- NOTE | 2017-06-27 17:27 | Nephrology Progress Note ---
Assessment/Plan Plan NSTEMI -TropI trending down. ESRD -had HD today. Sacral Decub - IV Abx. s/p sacral Debridement. Subjective Subjective c/o abd pain. Objective Objective Last 24 Hour Vital Signs Date Time Temp Pulse Resp B/P (MAP) Pulse Ox O2 Delivery O2 Flow Rate FiO2 06/27/17 16:27 140/60 06/27/17 16:00 63 06/27/17 16:00 97.9 73 20 140/60 98 Nasal Cannula 2.0 06/27/17 12:00 97.0 75 18 144/55 98 Nasal Cannula 2.0 06/27/17 12:00 73 06/27/17 08:49 76 116/58 06/27/17 08:00 97.6 76 18 116/58 99 Nasal Cannula 2.0 06/27/17 08:00 68 06/27/17 04:50 Nasal Cannula 2.0 06/27/17 04:00 96.1 70 16 134/61 96 Nasal Cannula 3.0 06/27/17 04:00 72 06/27/17 02:19 Nasal Cannula 2.0 06/27/17 00:00 97.6 70 16 111/65 97 Nasal Cannula 2.0 06/27/17 00:00 63 06/26/17 21:48 86 123/49 06/26/17 20:00 97.9 86 16 123/49 97 Nasal Cannula 2.0 06/26/17 20:00 79 06/26/17 17:16 116/48 Intake and Output 06/27/17 06/28/17 19:00 07:00 Intake Total 47.90 ml Balance 47.90 ml IV Total 47.90 ml Laboratory Tests 06/26/17 17:08: Activated Partial Thromboplast Time 54H, Troponin I 2.513H 06/26/17 22:00: Troponin I 2.214H 06/27/17 00:20: Activated Partial Thromboplast Time 56H 06/27/17 07:40: Activated Partial Thromboplast Time 93H, Troponin I 1.849H, Hepatitis B Surface Antigen [Pending], Hepatitis B Surface Antibody, Quant [Pending], Hepatitis B Core Total Antibody [Pending], Hepatitis B Core IgM Antibody [Pending], Hepatitis C Antibody [Pending] 06/27/17 13:25: Troponin I 1.557H Height (Feet): 4 Height (Inches): 11.00 Weight (Pounds): 132 Objective CV RR Lungs CTA Abd SNT. BS + Skin Stage 4decub. Rt. AKKHARI Pappas Jun 27, 2017 17:27
--- NOTE | 2017-06-27 20:19 | Cardiology Report ---
APPROVED REPORT EKG Measurement Heart [id number] [place] 196P72 [id number] Normal sinus rhythm Left axis deviation Right bundle branch block Abnormal ECG
--- NOTE | 2017-06-27 20:19 | Cardiology Report ---
APPROVED REPORT EKG Measurement Heart [id number] [place] 196P72 [id number] Normal sinus rhythm Left axis deviation Right bundle branch block Abnormal ECG
--- NOTE | 2017-06-27 20:19 | Cardiology Report ---
APPROVED REPORT EKG Measurement Heart [id number] [place] 196P72 [id number] Normal sinus rhythm Left axis deviation Right bundle branch block Abnormal ECG
[2017-06-27] MEDS: Atorvastatin 20mg tab ORAL SCH (21:28)
[2017-06-27] MEDS: Norco 5mg/325mg tab ORAL PRN (21:30)
--- NOTE | 2017-06-28 14:00 | Discharge Summary ---
Discharge Summary Hospital Course Date of Admission Jun 25, 2017 at 21:23 Date of Discharge Jun 27, 2017 at 22:30 Admitting Diagnosis chest pain/End stage renal disease HPI Terra Morfin is a 61 year old female who was admitted on Jun 25, 2017 at 21: 23 for Chest Pain,End Stage Renal Disease Hospital Course dc summary #[id number] Discharge Condition Upon Discharge: stable Discharge Disposition Patient was discharged to Acute Care Facility(02) Discharge Diagnoses: Discharge Instructions Discharge Instructions Special Instructions I have been assigned to complete a D/C Summary on this account. I was not involved in the patient management Laurie Greene NP (Vanchtein) Jun 28, 2017 14:00
--- NOTE | 2017-06-28 14:00 | Discharge Summary ---
Discharge Summary Hospital Course Date of Admission Jun 25, 2017 at 21:23 Date of Discharge Jun 27, 2017 at 22:30 Admitting Diagnosis chest pain/End stage renal disease HPI Terra Morfin is a 61 year old female who was admitted on Jun 25, 2017 at 21: 23 for Chest Pain,End Stage Renal Disease Hospital Course dc summary #[id number] Discharge Condition Upon Discharge: stable Discharge Disposition Patient was discharged to Acute Care Facility(02) Discharge Diagnoses: Discharge Instructions Discharge Instructions Special Instructions I have been assigned to complete a D/C Summary on this account. I was not involved in the patient management Laurie Greene NP (Vanchtein) Jun 28, 2017 14:00
--- NOTE | 2017-06-28 14:00 | Discharge Summary ---
Discharge Summary Hospital Course Date of Admission Jun 25, 2017 at 21:23 Date of Discharge Jun 27, 2017 at 22:30 Admitting Diagnosis chest pain/End stage renal disease HPI Terra Morfin is a 61 year old female who was admitted on Jun 25, 2017 at 21: 23 for Chest Pain,End Stage Renal Disease Hospital Course dc summary #[id number] Discharge Condition Upon Discharge: stable Discharge Disposition Patient was discharged to Acute Care Facility(02) Discharge Diagnoses: Discharge Instructions Discharge Instructions Special Instructions I have been assigned to complete a D/C Summary on this account. I was not involved in the patient management Laurie Greene NP (Vanchtein) Jun 28, 2017 14:00
--- NOTE | 2017-06-29 05:01 | Discharge Summary 2 SIG ---
DATE OF ADMISSION: 06/25/2017 DATE OF DISCHARGE: 06/27/2017 REASON FOR ADMISSION: 61-year-old female with a history of end-stage renal disease, on hemodialysis, diabetes, coronary artery disease, and pacemaker, was recently hospitalized in [facility]. Prior to presentation to the emergency department of [facility], she was complaining about left-sided chest pain. EKG in the field revealed no acute ischemic changes. She was given aspirin, but no nitrates. Troponin were minimally elevated at [facility], and last troponin was 0.3 at discharge. The patient herself denied shortness of breath, nausea, vomiting, or diarrhea. She had dialysis earlier that same day. Workup revealed stable vital signs. Pulse oximetry stable on room air, no tachycardia. EKG showed right bundle-branch block and left axis deviation with normal sinus rhythm. Pro BNP above 35,000. Renal parameters were consistent with a known history of end-stage renal disease. WBC -10.9, hemoglobin -9.2, and hematocrit -30.7. First troponin- 3.652. Urinalysis with pyuria and positive leukocyte esterase, but few bacteria. Chest x-ray revealed cardiomegaly with congestive heart failure, interstitial edema, and bilateral pleural effusion along with a pacemaker. The patient admitted for chest pain, likely non-STEMI, and end-stage renal disease. HOSPITAL STAY: The patient was admitted. Cardiology consult was requested. Serial troponin were ordered. The patient was started on heparin drip. The patient was also given one dose of Lasix 60 mg and dialysis was planned for the next day. The patient was pancultured and started on empiric antibiotics. Serial troponin trending down, however, still elevated, 2.952 in the morning, then the next morning on 06/27/2017 - 1.849. Manager Gift seen and evaluated the patient and requested transfer to [facility] for further interventions. In the meantime, the patient was on aspirin and heparin drip. Beta-karey was added to existing regimen. Pain was managed with the morphine on as needed. basis. The patient was on long-acting nitrite- Isordil. Supplemetnal oxygen provided as needed to keep pulse oximetry above 92%. Blood sugar was managed with sliding scale of insulin. GI prophylaxis was provided. Bowel regimen was instituted. Wound care nurse seen and evaluated the patient for sacral decubitus , un-stageable/stage IV. Wound care started as per wound nurse recommendations. Hemoglobin and hematocrit were closely monitored, remained on the baseline, no need for transfusion. Transfer was arranged to [facility] for further evaluation by territory manager general sales, likely angiogram. The patient was stable for discharge via [facility] ambulance. FINAL DIAGNOSES: 1. Chest pain, 2. Likely non-ST elevation myocardial infarction. 3. End-stage renal disease, on hemodialysis. 4. Anemia of chronic renal disease. 5. Hypertension. 6. Diabetes. 7. Status post right above-knee amputation. 8. Sacral decubitus, stage IV/unstageable, present on admission. DISCHARGE MEDICATIONS: The list of medication was sent to admitting facility. DISCHARGE INSTRUCTIONS: The patient was transferred to [facility] for further management, likely angiogram. Corinne Schultz M.D. I have been assigned to dictate discharge summary on this account and I was not involved in the patient's management. Laurie Burgessjose alejandro N.P. DR: ALL JOB#: [id number] CC: SANTY
--- NOTE | 2017-06-29 05:01 | Discharge Summary 2 SIG ---
DATE OF ADMISSION: 06/25/2017 DATE OF DISCHARGE: 06/27/2017 REASON FOR ADMISSION: 61-year-old female with a history of end-stage renal disease, on hemodialysis, diabetes, coronary artery disease, and pacemaker, was recently hospitalized in [facility]. Prior to presentation to the emergency department of [facility], she was complaining about left-sided chest pain. EKG in the field revealed no acute ischemic changes. She was given aspirin, but no nitrates. Troponin were minimally elevated at [facility] [place], and last troponin was 0.3 at discharge. The patient herself denied shortness of breath, nausea, vomiting, or diarrhea. She had dialysis earlier that same day. Workup revealed stable vital signs. Pulse oximetry stable on room air, no tachycardia. EKG showed right bundle-branch block and left axis deviation with normal sinus rhythm. Pro BNP above 35,000. Renal parameters were consistent with a known history of end-stage renal disease. WBC -10.9, hemoglobin -9.2, and hematocrit -30.7. First troponin- 3.652. Urinalysis with pyuria and positive leukocyte esterase, but few bacteria. Chest x-ray revealed cardiomegaly with congestive heart failure, interstitial edema, and bilateral pleural effusion along with a pacemaker. The patient admitted for chest pain, likely non-STEMI, and end-stage renal disease. HOSPITAL STAY: The patient was admitted. Cardiology consult was requested. Serial troponin were ordered. The patient was started on heparin drip. The patient was also given one dose of Lasix 60 mg and dialysis was planned for the next day. The patient was pancultured and started on empiric antibiotics. Serial troponin trending down, however, still elevated, 2.952 in the morning, then the next morning on 06/27/2017 - 1.849. Beam Machine Operator seen and evaluated the patient and requested transfer to [facility] for further interventions. In the meantime, the patient was on aspirin and heparin drip. Beta-karey was added to existing regimen. Pain was managed with the morphine on as needed. basis. The patient was on long-acting nitrite- Isordil. Supplemetnal oxygen provided as needed to keep pulse oximetry above 92%. Blood sugar was managed with sliding scale of insulin. GI prophylaxis was provided. Bowel regimen was instituted. Wound care nurse seen and evaluated the patient for sacral decubitus , un-stageable/stage IV. Wound care started as per wound nurse recommendations. Hemoglobin and hematocrit were closely monitored, remained on the baseline, no need for transfusion. Transfer was arranged to [facility] for further evaluation by solar photovoltaic electrician, likely angiogram. The patient was stable for discharge via [facility] ambulance. FINAL DIAGNOSES: 1. Chest pain, 2. Likely non-ST elevation myocardial infarction. 3. End-stage renal disease, on hemodialysis. 4. Anemia of chronic renal disease. 5. Hypertension. 6. Diabetes. 7. Status post right above-knee amputation. 8. Sacral decubitus, stage IV/unstageable, present on admission. DISCHARGE MEDICATIONS: The list of medication was sent to admitting facility. DISCHARGE INSTRUCTIONS: The patient was transferred to [facility] for further management, likely angiogram. Corinne Schultz M.D. I have been assigned to dictate discharge summary on this account and I was not involved in the patient's management. Laurie Burgessjose alejandro N.P. DR: ALL JOB#: [id number] CC: SANTY
--- NOTE | 2017-06-29 05:01 | Discharge Summary 2 SIG ---
DATE OF ADMISSION: 06/25/2017 DATE OF DISCHARGE: 06/27/2017 REASON FOR ADMISSION: 61-year-old female with a history of end-stage renal disease, on hemodialysis, diabetes, coronary artery disease, and pacemaker, was recently hospitalized in [facility]. Prior to presentation to the emergency department of [facility], she was complaining about left-sided chest pain. EKG in the field revealed no acute ischemic changes. She was given aspirin, but no nitrates. Troponin were minimally elevated at [facility] [place], and last troponin was 0.3 at discharge. The patient herself denied shortness of breath, nausea, vomiting, or diarrhea. She had dialysis earlier that same day. Workup revealed stable vital signs. Pulse oximetry stable on room air, no tachycardia. EKG showed right bundle-branch block and left axis deviation with normal sinus rhythm. Pro BNP above 35,000. Renal parameters were consistent with a known history of end-stage renal disease. WBC -10.9, hemoglobin -9.2, and hematocrit -30.7. First troponin- 3.652. Urinalysis with pyuria and positive leukocyte esterase, but few bacteria. Chest x-ray revealed cardiomegaly with congestive heart failure, interstitial edema, and bilateral pleural effusion along with a pacemaker. The patient admitted for chest pain, likely non-STEMI, and end-stage renal disease. HOSPITAL STAY: The patient was admitted. Cardiology consult was requested. Serial troponin were ordered. The patient was started on heparin drip. The patient was also given one dose of Lasix 60 mg and dialysis was planned for the next day. The patient was pancultured and started on empiric antibiotics. Serial troponin trending down, however, still elevated, 2.952 in the morning, then the next morning on 06/27/2017 - 1.849. Asp Net C Developer seen and evaluated the patient and requested transfer to [facility] for further interventions. In the meantime, the patient was on aspirin and heparin drip. Beta-karey was added to existing regimen. Pain was managed with the morphine on as needed. basis. The patient was on long-acting nitrite- Isordil. Supplemetnal oxygen provided as needed to keep pulse oximetry above 92%. Blood sugar was managed with sliding scale of insulin. GI prophylaxis was provided. Bowel regimen was instituted. Wound care nurse seen and evaluated the patient for sacral decubitus , un-stageable/stage IV. Wound care started as per wound nurse recommendations. Hemoglobin and hematocrit were closely monitored, remained on the baseline, no need for transfusion. Transfer was arranged to [facility] for further evaluation by parts identifier, likely angiogram. The patient was stable for discharge via [facility]. FINAL DIAGNOSES: 1. Chest pain, 2. Likely non-ST elevation myocardial infarction. 3. End-stage renal disease, on hemodialysis. 4. Anemia of chronic renal disease. 5. Hypertension. 6. Diabetes. 7. Status post right above-knee amputation. 8. Sacral decubitus, stage IV/unstageable, present on admission. DISCHARGE MEDICATIONS: The list of medication was sent to admitting facility. DISCHARGE INSTRUCTIONS: The patient was transferred to [facility] for further management, likely angiogram. Corinne Schultz M.D. I have been assigned to dictate discharge summary on this account and I was not involved in the patient's management. Laurie Burgessjose alejandro N.P. DR: ALL JOB#: [id number] CC: SANTY
== END 2017-06-27 22:30 | disposition short-term general hospital (02) | DRG 280 ==
LOC: EDBD 20:37 → EMR 21:12 → 2W 21:23 → EDBEDREQSVC 22:51 → EDBEDREQ 22:52 → ENRESERV 06-26 05:57 → EDBEDREQ 06-26 06:09
PROC: 05HN33Z Insertion of Infusion Device into Left Internal Jugular Vein, Percutaneous Approach (ICD-10-PCS; principal; 2017-06-25)
DX: I21.4 Non-ST elevation (NSTEMI) myocardial infarction (principal); N18.6 End stage renal disease; I13.2 Hypertensive heart and chronic kidney disease with heart failure and with stage 5 chronic kidney disease, or end stage renal disease; L89.154 Pressure ulcer of sacral region, stage 4; E11.22 Type 2 diabetes mellitus with diabetic chronic kidney disease; I50.9 Heart failure, unspecified; N39.0 Urinary tract infection, site not specified; D63.1 Anemia in chronic kidney disease; Z89.611 Acquired absence of right leg above knee; Z99.2 Dependence on renal dialysis; Z79.4 Long term (current) use of insulin; Z95.0 Presence of cardiac pacemaker
CPT/HCPCS: 36415; 71010; 80048; 80053; 81003; 82550; 82962; 83880; 84484; 85025; 85610; 85730; 86704; 86705; 86803; 87070; 87081; 87086; 87181; 87205; 87340; 87517; 93005; 99285; J1815; J2405